=== PATIENT | male | born 1975 | race Caucasian/White ===

== ENCOUNTER → 2020-04-05 | Outpatient (CLI) | payer OTHER | LOC: MRI 07:31 | PROVIDERS: ATTEND Orthopaedic Surgery | DX: S82.892D Other fracture of left lower leg, subsequent encounter for closed fracture with routine healing (principal); S93.492D Sprain of other ligament of left ankle, subsequent encounter; S86.30 Unspecified injury of muscle(s) and tendon(s) of peroneal muscle group at lower leg level; X58.XXXD Exposure to other specified factors, subsequent encounter ==

== ENCOUNTER 2021-05-01 12:38 | Emergency (ER) | payer OTHER ==
[~2021-05-01] VITALS: Ht 185.4 cm; Wt 94.8 kg
[2021-05-01 14:03] LABS: ABSOLUTE NEUTROPHILS 4.5 thou/uL (1.4-8.2); EOSINOPHILS 3.7 % (0.0-3.0); HEMATOCRIT 41.3 % (42.0-52.0); HEMOGLOBIN 14.6 gm/dL (14.0-18.0); LYMPHOCYTES 27.4 % (24.0-44.0); MCH 33.6 pg (26.0-34.0); MCHC 35.4 g/dL (28.0-37.0); MCV 94.9 fL (80.0-100.0); MONOCYTES 11.9 % (1.0-8.0); PLATELET COUNT 298 thou/uL (150-400); RBC 4.35 mil/uL (4.50-6.00); RDW 14.3 % (10.5-14.5)
[2021-05-01] MEDS ORDERED: QUETIAPINE FUM200 MG PO (14:36)
[2021-05-01] MEDS ORDERED: OMEPRAZOLE 20 M20 M1 PO (14:37)
[2021-05-01] MEDS ORDERED: NORVASC10 MG PO (14:37)
[2021-05-01] MEDS ORDERED: LIPITOR 20 MG T20 M1 PO (14:38)
[2021-05-01 15:31] LABS: CALCIUM 8.6 mg/dL (8.5-10.1); POTASSIUM 3.4 mmol/L (3.5-5.1)
[2021-05-01 15:41] LABS: ALBUMIN 3.8 g/dL (3.4-5.0); TOTAL BILIRUBIN 0.4 mg/dL (0.2-1.0); TOTAL PROTEIN 7.2 g/dL (6.4-8.2)
[2021-05-01 16:02] VITALS: BP 134/84
--- NOTE | 2021-05-02 08:02 | EKG ---
[address] [address] ELECTROCARDIOGRAM REPORT Name: STEVEN RDZ Room #: [facility]#: [id number] Admission: 05/01/21 Attend Phys: Discharge: 05/01/21 Date of : 77 Report #: [id number] [facility] ED Test Date: 2021-05-01 Test Time: 13:33:08 Pat Name: STEVEN RDZ Department: Room: Gender: Physiotherapy Practice Manager: : [id number] Requested By: Dano Manning Order Number: [id number] MD: Gilberto Vo Measurements Intervals [place] Rate: 90 P: 33 ID: [id number] QRS: 80 QRSD: 100 T: 27 QT: 376 QTc: 460 Interpretive Statements Sinus rhythm No significant abnormality No previous ECG available for comparison Electronically Signed On 05-02-2021 8:02:25 CDT by Gilberto Vo [email or web address] <ELECTRONICALLY SIGNED> By: Gilberto Vo MD, [facility] 05/02/21 [id number] Gilberto Vo MD, FACC /EPI
== END 2021-05-01 16:03 | disposition home or self-care (01) ==
LOC: ER 12:38
PROVIDERS: Nurse Practitioner
DX: R22.43 Localized swelling, mass and lump, lower limb, bilateral (principal); R06.00 Dyspnea, unspecified; Z88.5 Allergy status to narcotic agent; Z79.899 Other long term (current) drug therapy; Z20.822 Contact with and (suspected) exposure to COVID-19